=== PATIENT | male | born 1995 | race Caucasian/White ===

== ENCOUNTER 2024-02-05 18:42 | Emergency (ER) | payer SELFPAY ==
[~2024-02-05] VITALS: Ht 172.7 cm; Wt 82.0 kg
[2024-02-05 18:46] VITALS: O2SAT 100
[2024-02-05 19:57] LABS: BASOPHILS % 0.3 % (0.0-2.0); EOSINOPHILS % 0.2 % (0.0-5.0); HEMATOCRIT. 44.8 % (42.0-52.0); LYMPHOCYTES % 10.6 % (20.0-50.0); MEAN CORPUSCULAR HEMOGLOBIN 33.5 pg (28.0-32.0); MEAN CORPUSCULAR HGB CONC 33.6 g/dL (31.0-37.0); MEAN CORPUSCULAR VOLUME 99.7 fL (80.0-94.0); MEAN PLATELET VOLUME 8.6 fl (7.4-10.4); MONOCYTES % 5.8 % (2.0-8.0); NEUTROPHILS % 83.1 % (40.0-76.0); PLATELET 264 x1000/uL (130-400); RED BLOOD CELL COUNT 4.49 mill/uL (4.7-6.1); RED CELL DISTRIBUTION WIDTH 13.2 % (11.6-14.6); WHITE BLOOD COUNT 7.9 x1000/uL (4.5-11.0)
[2024-02-05] MEDS: ONDANSETRON HCL 4MG/2ML INJ IV STA (19:59)
[2024-02-05] MEDS: SODIUM CHLORIDE 0.9% 1,000 ML IV ONE (19:59)
[2024-02-05] MEDS: PANTOPRAZOLE SODIUM 40 MG/VIAL IV STA (19:59)
[2024-02-05 20:02] LABS: CARBON DIOXIDE 27 mEq/L (21-32); CHLORIDE 103 mEq/L (98-107); POTASSIUM 4.1 mEq/L (3.5-5.1); SODIUM 140 mEq/L (136-145)
[2024-02-05 20:03] LABS: CALCIUM 9.9 mg/dL (8.7-10.4)
[2024-02-05 20:07] LABS: CREATININE 0.9 mg/dL (0.6-1.3); INR 0.9; PROTHROMBIN TIME 9.8 sec (9.6-11.0)
[2024-02-05 20:08] LABS: ETHANOL BLOOD 229 mg/dL (<10); GLUCOSE 136 mg/dL (70-105)
[2024-02-05 20:09] LABS: ALANINE AMINOTRANSFERASE 143 IU/L (10-49); ALBUMIN 5.5 g/dL (3.2-4.8); ASPARTATE AMINOTRANSFERASE 246 IU/L (<34)
[2024-02-05 20:10] LABS: BILIRUBIN DIRECT 0.1 mg/dL (<=3.0); BILIRUBIN TOTAL 0.4 mg/dL (0.1-1.0); PROTEIN TOTAL 8.4 g/dL (6.0-8.3)
[2024-02-05 20:30] LABS: TROPONIN I HIGH SENSITIVITY < 4 ng/L (3.0-53); UREA NITROGEN BLOOD < 5 mg/dL (9-23)
[2024-02-05 22:58] LABS: TROPONIN I HIGH SENSITIVITY < 4 ng/L (3.0-53)
[2024-02-06] VITALS: BP 135/86; PULSE 74; RESP 17; TEMP 36.94740; O2SAT 99
== END 2024-02-06 00:27 | disposition home or self-care (01) ==
LOC: ER 18:42
DX: F10.129 Alcohol abuse with intoxication, unspecified (principal); R11.2 Nausea with vomiting, unspecified; R10.13 Epigastric pain; Y90.7 Blood alcohol level of 200-239 mg/100 ml
CPT/HCPCS: 80076; 80048; 80320; 82962; 83690; 85025; 85610; 86850; 86900; 86901; 84484; 36415; 71045; 93005; 96361; 96374; 96375; 99285; J2405; J2470; J7030; Z7610; G0480